=== PATIENT | female | born 1965 | race American Indian/Alaskan Native ===

== ENCOUNTER 2018-04-24 12:43 | Emergency (ER) | payer SELFPAY ==
[2018-04-24 13:16] VITALS: BP 166/86
[2018-04-24] MEDS ORDERED: MOTRIN PO ONE (14:10)
--- NOTE | 2018-04-24 14:11 | Emergency Department Report ---
Blank Doc - Documentation Documentation: Patient is a 53-year-old Female who tripped while walking outside over a ladder that was left after a construction project. The patient is complaining of right foot pain as well as lower back pain. Patient states she hit her head and she was dazed briefly and is not sure if she lost consciousness. A CT head and x-rays of the L-spine pelvis and right foot will be done.
--- NOTE | 2018-04-24 14:39 | Cat Scan Report ---
CT HEAD WITHOUT CONTRAST INDICATION: Head injury. COMPARISON: None similar at this institution. FINDINGS: Noncontrast head CT demonstrates approximately 2.5 cm right mid frontal peripheral hypodensity/encephalomalacia above the sylvian fissure as on axial image 31, series 2 as also left MCA territory old infarcts as approximately 1.1 cm left frontal lobe peripheral infarct on axial image 35 and an approximately 4.2 cm left parietal old infarct as on axial image 40, amongst others. Otherwise unremarkable ventricles and sulci without definite acute infarct, hemorrhage, mass effect or midline shift. No abnormal extra axial fluid collections. Normal posterior fossa with preserved basilar cisterns. Normal eye globes. Slight leftward nasal septal bowing. Clear imaged paranasal sinuses and mastoid air cells. Atherosclerotic ICA calcifications. Normal imaged calvarium. Slight scalp swelling or hematoma may be present posteriorly along the midline as on axial image 40. Few radiopaque dental fillings. Cervical spondylosis. 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 Please correlate. Thank you for the opportunity to participate in this patient's care.
--- NOTE | 2018-04-24 15:14 | XRay Report ---
LUMBAR SPINE RADIOGRAPHS: INDICATION: Fall, injury. COMPARISON: None similar. FINDINGS: AP and lateral lumbar spine radiographs demonstrate normal vertebral body stature, alignment and disc heights. Mild L4-L5 degenerative spurring may be noted. Lateral positioning suboptimal. Atherosclerotic vascular calcifications. Grossly intact SI joints. Nonobstructive bowel gas pattern. CONCLUSION: No acute lumbar radiographic abnormality with L4-L5 degenerative changes noted, as described. Thank you for the opportunity to participate in this patient's care.
--- NOTE | 2018-04-24 15:32 | XRay Report ---
PELVIS RADIOGRAPH INDICATION: Fall, injury. COMPARISON: None similar. FINDINGS: An AP pelvic radiograph demonstrates intact articulation, including the SI and hip joints. Bilateral acetabular degenerative spurring, left more than right. Iliac enthesophytosis also noted. Mild lower lumbar degenerative changes possible. Numerous vascular calcifications. Nonobstructive bowel gas pattern. Osteopenia not excluded. CONCLUSION: No acute pelvic radiographic abnormality with degenerative changes noted, as described. Thank you for the opportunity to participate in this patient's care.
--- NOTE | 2018-04-24 15:36 | XRay Report ---
RIGHT FOOT RADIOGRAPHS INDICATION: Fall, injury. COMPARISON: None similar. FINDINGS: AP, lateral and oblique right foot radiographs may suggest a nondisplaced fracture along the proximal aspect of the third proximal phalanx, best seen on the frontal view. Subtle fracture extension to the third MTP joint not entirely excluded. Normal remainder bony articulation. Osteopenia possible. Small dorsal and plantar calcaneal spurs. Extensive vascular calcifications noted. CONCLUSION: Subtle acute nondisplaced fracture involving proximal aspect of the third toe proximal phalanx suspected with few other findings, as above. Please correlate. Thank you for the opportunity to participate in this patient's care.
--- NOTE | 2018-04-24 15:48 | Emergency Department Report ---
Head Injury w/o Laceration - HPI Chief Complaint: Head Injury Stated Complaint: FALL INJURY/PAIN Time Seen by Provider: 04/24/18 14:06 Occurred When: Today Mechanism: Fall Location: Frontal Severity: moderate Head Inj w/o Lac: Yes Headache, No Loss of Consciousness, No Nausea, No Blurred Vision, No Altered Mental Status, No Focal Deficit, No Swelling, No Bruising, No Break in Skin, No Bleeding Other History: This is a 53-year-old -[place] female who presents with multiple complaints from a recent fall this morning at [employer] [facility]. 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 Patient states she attempted to step over a ladder at her apartment complex and tripped and fell around 08:30 AM. She is now complaining of headache and tenderness to forehead, left foot pain, and low back pain. Patient states she fell she hit her head on her car and back on any current park next to her vehicle. Denies loss of consciousness, bruising, swelling, numbness or tingling, change in bowel affording pattern, and deformity. ED General PMH - Social History Smoking Status: Never Smoker ED Neuro ROS - Review of Systems Constitutional: see HPI. denies: chills, diaphoresis, fever, malaise, weakness , other Eyes (ROS): denies: no symptoms reported, see HPI, blindness, blurred vision, vision change, drainage, decreased acuity, foreign body sensation, inflammation , pain, photophobia, previous injury, shadows, tunnel vision, contact lenses, glasses, other Respiratory: denies: no symptoms reported, see HPI, cough, orthopnea, short of breath, stridor, wheezing, other Cardiology: denies: no symptoms reported, see HPI, chest pain, edema, palpitations, syncope, other Gastrointestinal/Abdominal: denies: no symptoms reported, see HPI, abdominal pain, constipation, diarrhea, nausea, vomiting, other Musculoskeletal: back pain (low back pain), joint pain (left foot), muscle pain Skin: denies: no symptoms reported, see HPI, change in color, change in hair/ nails, dryness, lesions, lumps, rash, other Neurological: denies: no symptoms reported, see HPI, anxiety, depressed, emotional problems, cognitive dysfunction, headache, numbness, petit mal seizures, tingling, tonic-clonic seizures, unable to move lower ext, unable to move upper ext, weakness, other Endocrine: denies: no symptoms reported, see HPI, excessive sweating, flushing, intolerance to cold, intolerance to heat, increased hunger, increased thirst, increased urine, unexplained weight gain, unexplained weight loss, other Head Injury W/O Lac Exam - Exam General: Vital signs noted. No distress. Alert and acting appropriately. Head: Yes Pupils are PERRL, No Hemotympanum, No Hematoma/Ecchymosis, No Epistaxis, No Stepoff/Deformity, No Laceration, No Abrasion Chest, Abd, & Ext: Yes Clear Lung Sounds, Yes Regular Heart Rhythm, No Neck Pain , No Chest Injury/Pain, No Heart Murmur, No Abdominal Tenderness, No Back Tenderness, No Extremity Injury Neuroligical (Head Inj W/O Lac: Yes Normal Speech, Yes Normal Gait, No Lethargy , No Disorientation, No Focal Numbness, No Focal Weakness ED Disposition Clinical Impression: Strain of muscle, fascia and tendon of lower back, initial encounter Fall Qualifiers: Encounter type: initial encounter Qualified Code(s): W19.XXXA - Unspecified fall, initial encounter Fracture of toe of left foot Qualifiers: Encounter type: initial encounter Toe: lesser toe Fracture type: closed Phalanx : proximal Fracture alignment: nondisplaced Qualified Code(s): S92.515A - Nondisplaced fracture of proximal phalanx of left lesser toe(s), initial encounter for closed fracture Low back pain Qualifiers: Chronicity: acute Back pain laterality: bilateral Sciatica presence: without sciatica Qualified Code(s): M54.5 - Low back pain Headache Qualifiers: Headache type: post-traumatic Headache chronicity pattern: acute headache Intractability: not intractable Qualified Code(s): G44.319 - Acute post- traumatic headache, not intractable Disposition: DC-01 TO HOME OR SELFCARE Is pt being admited?: No Does the pt Need Aspirin: No Condition: Stable Instructions: Muscle Strain (ED), Toe Fracture (ED), Core Strengthening Exercises (GEN), Fall Prevention (ED) Additional Instructions: Rest Use ice or heat on affected area for 20 minutes and off for 2 hours. Take pain medication as needed for pain. Follow up with Primary Care Provider in 2-3 days. Prescriptions: Ibuprofen [Motrin 800 MG tab] 800 mg PO Q8HR PRN #12 tablet PRN Reason: Pain , Severe (7-10) Referrals: [facility] [place] [facility] [place] - 3-5 Days [facility] [Outside] - 3-5 Days [facility] [Outside] - 3-5 Days Forms: Work/School Release Form(ED) Time of Disposition: 16:09 Print Language: TONGAN ED Medical Decision Making - Radiology Data Radiology results: report reviewed, image reviewed PELVIS RADIOGRAPH INDICATION: Fall, injury. COMPARISON: None similar. FINDINGS: An AP pelvic radiograph demonstrates intact articulation, including the SI and hip joints. Bilateral acetabular degenerative spurring, left more than right. Iliac enthesophytosis also noted. Mild lower lumbar degenerative changes possible. Numerous vascular calcifications. Nonobstructive bowel gas pattern. Osteopenia not excluded. CONCLUSION: No acute pelvic radiographic abnormality with degenerative changes noted, as described. LUMBAR SPINE RADIOGRAPHS: INDICATION: Fall, injury. COMPARISON: None similar. FINDINGS: AP and lateral lumbar spine radiographs demonstrate normal vertebral body stature, alignment and disc heights. Mild L4-L5 degenerative spurring may be noted. Lateral positioning suboptimal. Atherosclerotic vascular calcifications. Grossly intact SI joints. Nonobstructive bowel gas pattern. CONCLUSION: No acute lumbar radiographic abnormality with L4-L5 degenerative changes noted, as described. RIGHT FOOT RADIOGRAPHS INDICATION: Fall, injury. COMPARISON: None similar. FINDINGS: AP, lateral and oblique right foot radiographs may suggest a nondisplaced fracture along the proximal aspect of the third proximal phalanx, best seen on the frontal view. Subtle fracture extension to the third MTP joint not entirely excluded. Normal remainder bony articulation. Osteopenia possible. Small dorsal and plantar calcaneal spurs. Extensive vascular calcifications noted. CONCLUSION: Subtle acute nondisplaced fracture involving proximal aspect of the third toe proximal phalanx suspected with few other findings, as above. Please correlate. CT HEAD WITHOUT CONTRAST INDICATION: Head injury. COMPARISON: None similar at this institution. FINDINGS: Noncontrast head CT demonstrates approximately 2.5 cm right mid frontal peripheral hypodensity/encephalomalacia above the sylvian fissure as on axial image 31, series 2 as also left MCA territory old infarcts as approximately 1.1 cm left frontal lobe peripheral infarct on axial image 35 and an approximately 4.2 cm left parietal old infarct as on axial image 40, amongst others. Otherwise unremarkable ventricles and sulci without definite acute infarct, hemorrhage, mass effect or midline shift. No abnormal extra axial fluid collections. Normal posterior fossa with preserved basilar cisterns. Normal eye globes. Slight leftward nasal septal bowing. Clear imaged paranasal sinuses and mastoid air cells. Atherosclerotic ICA calcifications. Normal imaged calvarium. Slight scalp swelling or hematoma may be present posteriorly along the midline as on axial image 40. Few radiopaque dental fillings. Cervical spondylosis. 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 Please correlate. - Medical Decision Making Patient was examined by me and screened by Dr. Haynes. Vitals are normal and patient is in no acute distress. Given Motrin 600 mg by mouth once when ER. Obtained x-rays of left foot, L-spine, pelvis, and CT of her. Radiograph dictated by radiologist and report reviewed by myself. Subtle acute nondisplaced fracture involving proximal aspect of the third toe proximal phalanx suspected with few other findings, as above. Please correlate. Kaleb wrap applied to left foot and placed in post op boot. Patient informed of results. Start ibuprofen for muscle strain and 3rd toe fracture. Plan discussed with patient to discharge home and treat outpatient. Patient discharged home in stable condition. Follow up with PCP in 2-3 days. ED Lower Ext EXAM - General Limitations: No Limitations - Extremities Extremities exam: Positive: normal capillary refill. Negative: pedal edema, joint swelling, calf tenderness Foot: Positive: tenderness (on palpation of 3rd-5th DIP joints). Negative: deformity, ecchymosis, puncture wound, foreign body, purulent discharge, laceration Top Foot Image: 1 - tenderness and decreased ROM, no erythema or swelling Gait: Positive: observed and limited by pain Neuro vascular tendon exam: no vascular compromise
== END 2018-04-24 16:24 | disposition home or self-care (01) ==
LOC: ED 12:43
DX: S92.515A Nondisplaced fracture of proximal phalanx of left lesser toe(s), initial encounter for closed fracture (principal); S39.012A Strain of muscle, fascia and tendon of lower back, initial encounter; G44.319 Acute post-traumatic headache, not intractable; W11.XXXA Fall on and from ladder, initial encounter; Y93.89 Activity, other specified; Y92.89 Other specified places as the place of occurrence of the external cause; Y99.8 Other external cause status
CPT/HCPCS: 70450; 72100; 72170; 99284